=== PATIENT | male | born 1965 | race Caucasian/White ===

== ENCOUNTER 2023-11-07 11:24 | Emergency (ER) | payer OTHER, SELFPAY ==
--- NOTE | 2023-11-07 11:31 | ED.EAR ---
HPI - Ear Problem General Chief complaint: Ear Stated complaint: Ear Problem Time Seen by Provider: 11/07/23 11:51 Source: patient and RN notes reviewed Mode of arrival: ambulatory Limitations: no limitations History of Present Illness HPI Narrative: Block 58-year-old male presents concern for ear wax in his right ear. Reports he has been trying the use products at home without relief. He denies drainage from the ear. Reports discomfort and decreased hearing MD Complaint: ear pain and decreased hearing Related Data Home Medications Medication Instructions Recorded Confirmed allopurinol 300 mg tablet mg 11/07/23 atorvastatin 40 mg tablet mg 11/07/23 atorvastatin 40 mg tablet mg 11/07/23 buspirone 10 mg tablet mg 11/07/23 exenatide microspheres 2 mg/0.85 mg subcut 11/07/23 mL subcutaneous auto-injector (Smith Busby) fluoxetine 20 mg tablet mg 11/07/23 folic acid 1 mg tablet 11/07/23 levothyroxine 200 mcg tablet mcg 11/07/23 lisinopril 2.5 mg tablet mg 11/07/23 metformin 500 mg tablet mg 11/07/23 methotrexate sodium 2.5 mg tablet mg 11/07/23 risankizumab-rzaa 150 mg/mL mg subcut 11/07/23 subcutaneous pen injector (Aye) tamsulosin 0.4 mg capsule mg PO 11/07/23 terbinafine HCl 250 mg tablet mg 11/07/23 testosterone 11/07/23 tirzepatide 12.5 mg/0.5 mL mg subcut 11/07/23 subcutaneous pen injector (Donaldo) tramadol 50 mg tablet mg 11/07/23 venlafaxine 75 mg capsule,extended mg PO 11/07/23 release 24 hr Allergies Allergy/AdvReac Type Severity Reaction Status Date / Time No Known Allergies Allergy Verified 11/07/23 11:42 Review of Systems Review of Systems: CONSTITUTIONAL: Denies malaise, chills, sweats, or fever. EYES: Denies visual changes, redness, or discharge. ENT: Denies rhinorrhea, congestion, sinus pain, and sore throat. Reports right ear pain and decreased hearing CARDIOVASCULAR: Denies chest pain, palpitations, or edema. RESPIRATORY: Denies cough. Denies dyspnea. GASTROINTESTINAL: Denies abdominal pain, nausea, vomiting, diarrhea SKIN: Denies rash or itching. MUSCULOSKELETAL: Denies myalgia. NEUROLOGIC: Denies headache. All systems reviewed & are unremarkable except as noted in HPI and below PMFSH Comments At time of signature, agree with nursing past medical, surgical, social and family history. There is no relevant family history pertinent to the presenting complaint Exam Narrative: GENERAL: Well-appearing, well-nourished, and in no acute distress. HEAD: Normocephalic EYES: PERRLA, conjunctivae clear ENT: Nares clear. Mucous membranes moist. Left TM pearly [place] with dull light reflex, right TM not visible due to excess cerumen; no tragal tenderness. NECK: Supple. CHEST: Clear to auscultation, breath sounds equal. No wheezing, rhonchi, rales, or stridor. No respiratory distress, speaks in full sentences. HEART: Regular rate and rhythm. No murmur heard. SKIN: Warm, dry, no rash. NEURO: Alert and oriented x3. PSYCH: Normal mood and affect Course Course Emergency Course: Patient is aware of diagnosis, understands and agrees to treatment plan. Anticipatory guidance given. Patient agrees to follow-up as directed and is aware of reasons to seek care at the emergency department. Portions of this record may have been created with voice recognition software Level of Care: Express Care Visit Vital Signs Vital signs: Reviewed. Procedures Ear Wax Removal Right Ear: Ear Wax Removal Date: 11/07/23 Ear Wax Removal Time: 11:55 Cerumenolytic Used: other (hydrogen peroxide) Results: Re-examined: cerumen removed completely TM Examination: TM(s) intact, normal appearance Ear Canal Exam: atraumatic Patient Tolerated Procedure: well Complications: no problems Technique: ear canal irrigated and ear canal curetted Medical Decision Making MDM Narrative Medical decision making narrative: Differenti
[2023-11-07 11:32] VITALS: BP 128/73; PULSE 71; RESP 20; TEMP 36.3; O2SAT 98
== END 2023-11-07 12:25 | disposition home or self-care (01) ==
PROVIDERS: Emergency Provider Nurse Practitioner; PCP Physician Assistant
DX: H61.21 Impacted cerumen, right ear (principal); E78.00 Pure hypercholesterolemia, unspecified; I10 Essential (primary) hypertension; M10.9 Gout, unspecified; M19.90 Unspecified osteoarthritis, unspecified site; E11.9 Type 2 diabetes mellitus without complications; E03.9 Hypothyroidism, unspecified
CPT/HCPCS: 69209; 99212; G0463

== ENCOUNTER 2024-10-12 14:27 | Emergency (ER) | payer OTHER, SELFPAY ==
[2024-10-12 15:15] VITALS: BP 126/72; PULSE 64; RESP 18; TEMP 35.8; O2SAT 100
--- NOTE | 2024-10-12 17:06 | ED.GENADULT ---
HPI - General Adult General Chief complaint: Extremity Injury, Lower Stated complaint: Lower Right Leg Pain Time Seen by Provider: 10/12/24 16:55 Source: patient, RN notes reviewed and old records reviewed Mode of arrival: ambulatory Limitations: no limitations History of Present Illness HPI narrative: 59 year old male who presents to [facility] care with complaints of pain to his right lower leg for approximately 1 week duration. Patient reports that he has chronic right lower back pain that radiates in to his buttock and then it will go down the lateral aspect of his right leg. Patient reports no injury, no swelling present or any redness or any pain to calf area. Patient reports that he has taken some muscle relaxers but pain continues to right lateral lower leg..CSM is intact. MD complaint: right lower leg pain Onset (ago): week(s) (1) Severity scale (1-10): 5 Quality: sharp Treatments prior to arrival: other (muscle relaxers, tramadol) Related Data Home Medications ?Medication ?Instructions ?Recorded ?Confirmed ?Last Taken ?Type allopurinol 300 mg tablet mg 11/07/23 Unknown History atorvastatin 40 mg tablet mg 11/07/23 Unknown History atorvastatin 40 mg tablet mg 11/07/23 Unknown History buspirone 10 mg tablet mg 11/07/23 Unknown History fluoxetine 20 mg tablet mg 11/07/23 Unknown History folic acid 1 mg tablet 11/07/23 Unknown History levothyroxine 200 mcg tablet mcg 11/07/23 Unknown History lisinopril 2.5 mg tablet mg 11/07/23 Unknown History metformin 500 mg tablet mg 11/07/23 Unknown History methotrexate sodium 2.5 mg tablet mg 11/07/23 Unknown History risankizumab-rzaa 150 mg/mL mg subcut 11/07/23 Unknown History subcutaneous pen injector (Skyrizi) tamsulosin 0.4 mg capsule mg PO 11/07/23 Unknown History testosterone 11/07/23 Unknown History tirzepatide 12.5 mg/0.5 mL mg subcut 11/07/23 Unknown History subcutaneous pen injector (Donaldo) tramadol 50 mg tablet mg 11/07/23 Unknown History venlafaxine 75 mg capsule,extended mg PO 11/07/23 Unknown History release 24 hr Allergies Allergy/AdvReac Type Severity Reaction Status Date / Time No Known Allergies Allergy Verified 10/12/24 15:18 Review of Systems Review of Systems: CONSTITUTIONAL: Denies fever, chills, or sweats. EYES: Denies visual changes, redness, or discharge. ENT: Denies rhinorrhea, congestion, sore throat, or otalgia. CARDIOVASCULAR: Denies chest pain, palpitations, or edema. RESPIRATORY: Denies cough or dyspnea. GASTROINTESTINAL: Denies abdominal pain, nausea, vomiting, or diarrhea. GENITOURINARY: Denies dysuria or hematuria. SKIN: Denies rash or itching. MUSCULOSKELETAL: Denies back pain, right lower leg pain, or myalgia. NEUROLOGIC: Denies headache, numbness, or weakness. PSYCHIATRIC: Reports history of anxiety or depression. All systems reviewed & are unremarkable except as noted in HPI and below PMFSH Past Medical History Medical History (Updated 10/18/24 @ 08:58 by Mayuri Moreno NP) Right sided sciatica Liver injury 40 years ago Arthritis Gout Hyperlipidemia Hypertension Diabetes Anxiety and depression Social History Social History (Updated 10/18/24 @ 08:54 by Mayuri Moreno NP) Smoking status: Never smoker Alcohol intake: unknown Substance use: unknown Gender identity (if verbalized by the patient): Male Comments At time of signature, agree with nursing past medical, surgical, social and family history. There is no relevant family history pertinent to the presenting complaint Exam Narrative: GENERAL: Well-appearing, well-nourished, and in no acute distress. HEAD: Normocephalic, atraumatic. EYES: PERRLA and EOMI. ENT: Nares clear, no rhinorrhea or epistaxis. Mucous membranes moist.RM's normal is [place], throat pink with no swelling NECK: Supple.no lymphadenopathy CHEST: Clear to auscultation. No respiratory distress.SAO2 100% on room air HEART: Regular rate and rhythm. No murmur heard. Normal peripheral pulses. ABDOMEN: Soft, nontender, nondistended, normal active bowel sounds. EXTREMITIES: Normal range of motion. No edema.Pain to lateral aspect of right lower leg sharp at times, history of chronic right sciatica, CSM is intact, no redness swelling and no reported injury. SKIN: Warm, dry, no rash. NEURO: No focal deficits. Alert and oriented x3. Course Course Emergency Course: Patient is aware of diagnosis, understands and agrees to treatment plan.? Anticipatory guidance given.? Patient agrees to follow-up as directed and is aware of reasons to seek care at the emergency department. Portions of this record may have been created with voice recognition software Level of Care: Express Care Visit Vital Signs Vital signs: Vital Signs Temperature 35.8 C L 10/12/24 15:15 Pulse Rate 64 10/12/24 15:15 Respiratory Rate 18 10/12/24 15:15 Blood Pressure 126/72 10/12/24 15:15 Pulse Oximetry 100 10/12/24 15:15 Oxygen Delivery Room Air 10/12/24 15:15 Temperature 35.8 C L 10/12/24 15:15 Pulse Rate 64 10/12/24 15:15 Respiratory Rate 18 10/12/24 15:15 Blood Pressure 126/72 10/12/24 15:15 Pulse Oximetry 100 10/12/24 15:15 Oxygen Delivery Room Air 10/12/24 15:15 Reviewed Medical Decision Making MDM Narrative Medical decision making narrative: Exam findings and imaging show no acute concerns or changes; patient is non-toxic appearing and is in no distress.? Patient is appropriate for outpatient treatment and follow-up Differential Diagnosis Differential Diagnosis: lumbar radiculopathy, chronic back pain with sciatica, right leg pain Medical Records Medical records reviewed: Yes I reviewed the external patient's medical records. Vital Signs Vital Signs: Vital Signs Temperature 35.8 C L 10/12/24 15:15 Pulse Rate 64 10/12/24 15:15 Respiratory Rate 18 10/12/24 15:15 Blood Pressure 126/72 10/12/24 15:15 Pulse Oximetry 100 10/12/24 15:15 Oxygen Delivery Room Air 10/12/24 15:15 Temperature 35.8 C L 10/12/24 15:15 Pulse Rate 64 10/12/24 15:15 Respiratory Rate 18 10/12/24 15:15 Blood Pressure 126/72 10/12/24 15:15 Pulse Oximetry 100 10/12/24 15:15 Oxygen Delivery Room Air 10/12/24 15:15 reviewed Critical Care Time Critical Care Time Critical Care Time: No Discharge Plan Discharge Clinical Impression: Leg pain, right Patient Disposition: Home, Self-Care Condition: Stable Instructions: Antibiotic Form, Lumbar Radiculopathy (ED) Additional Instructions: Ice and heat to the area for 20-30 minutes Gentle stretching exercises Gentle massage Caution with lifting, bending, stooping, twisting Avoid pushing, pulling take muscle relaxants as directed--caution drowsiness and no driving or alcohol Anti-inflammatory medicine as directed--take with food He may take the muscle relaxant and anti-inflammatory at the same time Follow-up with your PCP if not improving in 5-7 days Follow-up in ED if there is any redness swelling or increased pain in right lateral leg Patient Language: Macedonian Prescriptions: New prednisone 10 mg tablet 10 mg PO DIRECTED Qty: 21 0RF Rx Instructions: see taper instructions 6 tabs day 1, 5 tabs day 2, 4 tabs day 3, 3 tabs day 4, 2 tabs day 5, 1 tab day 6 No Action atorvastatin 40 mg tablet atorvastatin 40 mg tablet metformin 500 mg tablet venlafaxine 75 mg capsule,extended release 24hr PO tramadol 50 mg tablet methotrexate sodium 2.5 mg tablet tamsulosin 0.4 mg capsule PO fluoxetine 20 mg tablet buspirone 10 mg tablet folic acid 1 mg tablet allopurinol 300 mg tablet levothyroxine 200 mcg tablet lisinopril 2.5 mg tablet testosterone 20.25 mg/1.25 gram (1.62 %) gel in metered-dose pump Skyrizi 150 mg/mL pen injector SUBCUT Mounjaro 12.5 mg/0.5 mL pen injector SUBCUT Follow-up/Referrals: PHYSICIAN,[employer] [Primary Care Provider] - Time of Disposition: 17:20 Quality Mclean Coma Scale Eyes: Open Verbal: Oriented and Alert Motor: Follows Commands Mclean Coma Total Score: 15
== END 2024-10-12 17:22 | disposition home or self-care (01) ==
PROVIDERS: Emergency Provider Registered Nurse
DX: M79.661 Pain in right lower leg (principal); E78.5 Hyperlipidemia, unspecified; I10 Essential (primary) hypertension; E11.9 Type 2 diabetes mellitus without complications
CPT/HCPCS: 99213; G0463